=== PATIENT | female | born 1930 | race Caucasian/White ===

== ENCOUNTER → 2017-01-23 | Outpatient (CLI) | payer MEDICARE ==
--- NOTE | 2017-01-23 12:57 | RAD ---
Lumbar spine with lateral flexion and extension views, 5 views, 01/23/2017: History: Chronic low back pain The bony structures are demineralized. No fracture is identified. There is mild disc space narrowing and moderate marginal spurring throughout the lumbar spine. There are moderate degenerative changes involving multiple facet joints bilaterally. There is a mild grade 1 spondylolisthesis at L4-5 due to facet joint arthropathy. There is a slight spondylolisthesis at L3-4. These findings do not appear to change significantly with flexion or extension. Extensive aortic calcific plaquing is present. IMPRESSION: 1. Demineralization. 2. Moderate multilevel degenerative change. 3. Mild spondylolisthesis at L4-5 and to a lesser degree at L3-4 due to facet joint arthropathy.
== END | disposition home or self-care (01) ==
LOC: DXRAD 12:26
PROVIDERS: ATTEND Anesthesiology Pain Medicine
DX: M47.896 Other spondylosis, lumbar region (principal); M43.16 Spondylolisthesis, lumbar region; M12.88 Other specific arthropathies, not elsewhere classified, other specified site; I70.0 Atherosclerosis of aorta
CPT/HCPCS: 72110

== ENCOUNTER → 2017-04-15 | Day surgery (SDC) | payer MEDICARE ==
[~2017-04-15] MED LIST: BUPIVACAINE MPF 0.5% 30 ML VIAL. ONE; CLINDAMYCIN 600MG PREMIX 50 ML IV ONE; IV RINGERS SOLUTION,LACTATED 1,000 ML IV ONE; LIDOCAINE 1% PF 30 ML VIAL. ONE; LIDOCAINE 2% PF Vial for OR 5 ML VIAL. ONE; ONDANSETRON PF 4 MG/2 ML VIAL. ONE; PHENYLEPHRINE 10 MG/ML VIAL. IV ONE; PROPOFOL 40 ML IV ONE
[2017-04-15 10:27] LABS: BASO % 1 % (0-3); EOS # 0.1 x10^3/uL (0.0-0.7); EOS % 2 % (0-3); HEMATOCRIT 36.5 % (36.0-47.0); HEMOGLOBIN 12.6 g/dL (12.0-15.5); LYMPH # 1.9 x10^3/uL (1.0-4.8); LYMPH % 33 % (24-48); MEAN CORPUSCULAR HEMOGLOBIN 33 pg (25-35); MEAN CORPUSCULAR HGB CONC 35 g/dL (31-37); MEAN CORPUSCULAR VOLUME 96 fL (79-100); MONO # 0.6 x10^3/uL (0.0-1.1); MONO % 10 % (0-9); NEUT # 3.1 x10^3uL (1.8-7.7); NEUT % 54 % (31-73); PLATELET COUNT 232 x10^3/uL (140-400); RED BLOOD COUNT 3.79 x10^6/uL (3.50-5.40); RED CELL DISTRIBUTION WIDTH 12.6 % (11.5-14.5); WHITE BLOOD COUNT 5.7 x10^3/uL (4.0-11.0)
[2017-04-15 11:11] LABS: BILIRUBIN,URINE NEG (NEG); CLARITY,URINE CLEAR; COLOR,URINE STRAW; GLUCOSE,URINE NEG (NEG)
[2017-04-15 11:12] LABS: BACTERIA,URINE 0 /HPF (0-FEW); NITRITE,URINE NEG (NEG); RBC,URINE 0 /HPF (0-2); SQUAMOUS EPITHELIAL CELL,UR OCC /LPF; UROBILINOGEN,URINE 0.2 mg/dL (0.2 mg/dL); WBC,URINE 0 /HPF (0-4)
== END | disposition home or self-care (01) ==
LOC: SURG 09:21
PROVIDERS: ATTEND Anesthesiology Pain Medicine
DX: M48.062 Spinal stenosis, lumbar region with neurogenic claudication (principal); I10 Essential (primary) hypertension; E03.9 Hypothyroidism, unspecified; M19.91 Primary osteoarthritis, unspecified site
CPT/HCPCS: 22867; 36415; 81001; 85025; J2001; J2405; J2704; J3010; J3490; J7120; 22869; J0690